=== PATIENT | male | born 1985 | race Caucasian/White ===

== ENCOUNTER 2021-11-22 20:56 | Emergency (ER) | payer OTHER ==
[~2021-11-22 20:56] MED LIST: DEBROX15 ML AU; NORCO 5-325 TA1 EACH PO
[2021-11-22 21:47] LABS: BASOPHIL 0.6 % (0-2); EOSINOPHIL 4.3 % (0-5); HCT 46.1 % (42.0-52.0); LYMPHOCYTE 34.8 % (15-48); MCH 32.3 pg (25.0-31.0); MCHC 34.7 g/dL (32.0-36.0); MCV 92.9 fL (78.0-100.0); MONOCYTE 13.2 % (0-12); MPV 9.8 fL (6.0-9.5); NEUTROPHIL 46.5 % (41-80); NRBC 0; PLT 257 K/uL (150-400); RBC 4.96 M/uL (4.70-6.00); RDW 12.5 % (11.5-14.0); WBC 10.5 K/uL (4.0-10.5)
[2021-11-22 22:03] LABS: INR 1.06 (0.9-1.2); PROTHROMBIN TIME 13.2 SECONDS (11.8-13.4)
[2021-11-22 22:04] LABS: PTT 29.5 SECONDS (24.4-34.7)
[2021-11-22 22:14] LABS: ALBUMIN 3.6 g/dL (3.4-5.0); BILIRUBIN - TOTAL 0.2 mg/dL (0.2-1.0); BUN/CREAT RATIO (CALC) 14.3 RATIO; CREATININE 0.91 mg/dL (0.67-1.17); GLOBULIN (CALCULATION) 4.3 g/dL; POTASSIUM 3.6 mmol/L (3.5-5.1); TOTAL PROTEIN 7.9 g/dL (6.4-8.2)
[2021-11-22 22:36] LABS: BILIRUBIN NEGATIVE (NEGATIVE); BLOOD NEGATIVE Ery/uL (NEGATIVE); CLARITY CLEAR (CLEAR); COLOR YELLOW (YELLOW); GLUCOSE (U) NORMAL (NORMAL); LEUKOCYTES NEGATIVE Leu/uL (NEGATIVE); NITRITE NEGATIVE (NEGATIVE); PROTEIN NEGATIVE (NEGATIVE); SPECIFIC GRAVITY 1.025 (1.001-1.030); UROBILINOGEN 0.2 mg/dL (0.2-1.0)
[2021-11-22 22:45] LABS: AMYLASE 34 U/L (25-115); LIPASE 90 U/L (73-393)
== END 2021-11-23 00:19 | disposition home or self-care (01) ==
LOC: FER 20:56
PROVIDERS: Nurse Practitioner Family
DX: R07.89 Other chest pain (principal); R10.13 Epigastric pain; F17.210 Nicotine dependence, cigarettes, uncomplicated; Z28.310 Unvaccinated for COVID-19
CPT/HCPCS: 36415; 71045; 80053; 81003; 82150; 83690; 84484; 85025; 85610; 85730; 93005; J1885; J2405; J7030; Q9967

== ENCOUNTER 2022-02-05 00:48 | Emergency (ER) | payer OTHER ==
[2022-02-05 01:57] LABS: BASOPHIL 0.6 % (0-2); EOSINOPHIL 3.8 % (0-5); HCT 41.2 % (42.0-52.0); HGB 14.2 g/dl (13.2-18.0); LYMPHOCYTE 39.7 % (15-48); MCHC 34.5 g/dL (32.0-36.0); MCV 92.8 fL (78.0-100.0); MONOCYTE 15.2 % (0-12); MPV 10.6 fL (6.0-9.5); NEUTROPHIL 40.3 % (41-80); NRBC 0; PLT 269 K/uL (150-400); RBC 4.44 M/uL (4.70-6.00); RDW 12.7 % (11.5-14.0); WBC 10.9 K/uL (4.0-10.5)
[2022-02-05 02:00] LABS: BILIRUBIN NEGATIVE (NEGATIVE); BLOOD TRACE-INTACT Ery/uL (NEGATIVE); CLARITY CLEAR (CLEAR); COLOR YELLOW (YELLOW); GLUCOSE (U) NORMAL (NORMAL); LEUKOCYTES NEGATIVE Leu/uL (NEGATIVE); NITRITE NEGATIVE (NEGATIVE); PROTEIN NEGATIVE (NEGATIVE); SPECIFIC GRAVITY >=1.030 (1.001-1.030); UROBILINOGEN 0.2 mg/dL (0.2-1.0); pH 5.5 (5.0-9.0)
[2022-02-05 02:12] LABS: AMPHETAMINES NEGATIVE (NEGATIVE); BARBITURATES NEGATIVE (NEGATIVE); ECSTASY (MDMA) NEGATIVE (NEGATIVE); MARIJUANA (THC) NEGATIVE (NEGATIVE); METHADONE NEGATIVE (NEGATIVE); OPIATES NEGATIVE (NEGATIVE); OXYCODONE NEGATIVE (NEGATIVE)
[2022-02-05 02:13] LABS: ALBUMIN 3.8 g/dL (3.4-5.0); BILIRUBIN - TOTAL 0.5 mg/dL (0.2-1.0); GLOBULIN (CALCULATION) 3.6 g/dL; POTASSIUM 3.2 mmol/L (3.5-5.1); TOTAL PROTEIN 7.4 g/dL (6.4-8.2)
[2022-02-05 02:17] LABS: MUCOUS TRACE; URINARY RBC RARE; URINARY WBC RARE
[2022-02-05] MEDS ORDERED: ANTIVERT25 MG PO (05:10)
[2022-02-05] MEDS ORDERED: AUGMENTIN 500-1 EACH PO (05:10)
== END 2022-02-05 09:14 | disposition home or self-care (01) ==
LOC: FER 00:48
PROVIDERS: Emergency Medicine
DX: R55 Syncope and collapse (principal); R11.2 Nausea with vomiting, unspecified; F17.210 Nicotine dependence, cigarettes, uncomplicated; Z86.16 Personal history of COVID-19
CPT/HCPCS: 36415; 36600; 80053; 80305; 81001; 82150; 82803; 83690; 84145; 84484; 85025; J2310; J2405; J2550; J3360; J3480; J7030